=== PATIENT | female | born 1935 | race Caucasian/White ===

== ENCOUNTER 2017-11-03 18:00 | Inpatient (IN) | payer MEDICARE, OTHER ==
--- NOTE | 2017-11-03 18:42 | ED Physician Documentation ---
General Adult - HISTORIAN Historian: patient - HPI Stated Complaint: altered mental status Chief Complaint: General Adult Onset: hours Timing: still present Severity: moderate Further Comments: yes (Pt is an 82 yo female sent from [facility] for change in mental status. Pt has been on the decline for several weeks and has not been eating per family. Pt had modestly elevated liver enzymes on 10/29/17, but appears jaundiced on presentation. Pt is obtunded, responsive to painful stimuli.) - ROS CONST: other (Pt cannot give ROS) - PAST HX Past History: other (Depression, HTN, Osteoarthritis, B-12 deficiency, Anemia, Spinal stenosis, dementia) - SOCIAL HX Smoking History: non-smoker - FAMILY HX Family History: No - VITAL SIGNS Vital Signs: Vital Signs Temp Pulse Resp BP Pulse Ox 136/69 04/13/13 14:00 - REVIEWED ASSESSMENTS Nursing Assessment Reviewed: Yes Vitals Reviewed: Yes <Konstantin Dumas - Last Filed: 11/03/17 19:08> - VITAL SIGNS Vital Signs: Vital Signs Temp Pulse Resp BP Pulse Ox 96.9 F L 75 30 H 92/50 11/03/17 18:03 11/03/17 21:00 11/03/17 18:03 11/03/17 18:03 <Onofre Edwards - Last Filed: 11/03/17 21:25> - PAST HX Allergies/Adverse Reactions: Allergies Allergy/AdvReac Type Severity Reaction Status Date / Time No Known Allergies Allergy Verified 03/25/13 08:06 Home Medications: Ambulatory Orders Medication Instructions Recorded Acetaminophen 650 mg RC Q4 PRN 10/31/17 Acetaminophen [Tylenol Extra 1,000 mg PO BID u2 10/31/17 Strength] Atenolol [Tenormin] 50 mg PO dly hold if HR <60 u2 10/31/17 Ferrous Sulfate 325 mg PO DAILY u2 10/31/17 Folic Acid 1 mg PO DAILY u2 10/31/17 Furosemide [Lasix] 40 mg PO DAILY u2 10/31/17 Loperamide HCl/Simethicone 1 each PO PRN u2 10/31/17 [Imodium Multi-Symptom Rel Cplt] Potassium Chloride 10 meq PO DAILY u2 10/31/17 Ranitidine HCl 150 mg PO BID u2 10/31/17 Progress - Progress Progress: Care transferred to Dr. Edwards at 1900. <Konstantin Dumas - Last Filed: 11/03/17 19:08> ED Results Lab/Radiology - Orders Orders: ED Orders Category Date Time Status Continuous EKG monitoring Q30M Care 11/03/17 18:45 Active Continuous Pulse Oximetry Q30M Care 11/03/17 18:45 Active Cesar [Urinary catheterization] 1T Care 11/03/17 21:[address] IV Lock 1T Care 11/03/17 18:45 Active CHEST 1VIEW [RAD] Stat Exams 11/03/17 Completed CBC/PLATELET/DIFF Routine Lab 11/03/17 19:16 Received CKMB Stat Lab 11/03/17 19:16 Received CMP Routine Lab 11/03/17 19:16 Received CREATINE KINASE Routine Lab 11/03/17 19:16 Received TROPONIN I (cTnI) Stat Lab 11/03/17 19:16 Received UA [URINALYSIS] Routine Lab 11/03/17 Ordered 0.9 % Sodium Chloride [Normal Saline] 1,000 ml Med 11/03/17 18:43 Discontinued IV .STK-MED 0.9 % Sodium Chloride [Normal Saline] 1,000 ml Med 11/03/17 21:00 Ordered IV Q10H 0.9 % Sodium Chloride [Normal Saline] 1,000 ml Med 11/03/17 18:45 Discontinued IV Q2H Oxygen Daily Oxygen 11/03/17 18:45 Ordered EKG WITH COMPARISON Stat Ther 11/03/17 18:45 Ordered Transfer Routine Transfer 11/03/17 Ordered <Onofre Edwards - Last Filed: 11/03/17 21:25> General Adult Physical Exam - PHYSICAL EXAM GENERAL APPEARANCE: severe distress (obtunded) EENT: other (pupils constricted, minimally reactive) RESPIRATORY: other (limited excursion, ) CVS: irregularly irregular rhy ABDOMEN: soft, decreased BS SKIN: warm/dry, jaundice EXTREMITIES: edema (2+) NEURO: other (obtunded) <Konstantin Dumas - Last Filed: 11/03/17 19:08> Discharge <Konstantin Dumas - Last Filed: 11/03/17 19:08> Comments: disc cond w/ family and DR CHIANG will adm observation cont hydration eval for joe et sepsis Decision to Admit: NO Decision Time: 21:25 <Onofre Edwards - Last Filed: 11/03/17 21:25> Clincal Impression: dehydration, probable uti, severe ininationand debilitation Referrals: Gideon Chiang MD [Primary Care Provider] - 2 Days Condition: Fair Disposition: T-[facility]
[2017-11-03] MEDS ORDERED: 0.9 % SODIUM CHLORIDE 1,000 ML IV ONE ×2 (18:43→18:45)
--- NOTE | 2017-11-03 19:28 | Diagnostic Imaging Report ---
[facility] [id number] [facility].[address] [address] Report Submission Date: Nov 03, 2017 7:25:18 PM CDT Patient Study Name: RAHUL SERRANO Date: Nov 03, 2017 6:52:17 PM CDT Modality Type: DX Gender: F Description: CHEST : 31 Institution: [facility] Physician: BERT MCGRAW Chest, 1 view History: OBTUNDED,HYPOTENSIVE Findings: The heart size is mildly enlarged. Mild atherosclerosis is present of the aorta. The lungs are clear. Calcified granuloma seen in the right upper lobe. There is no pleural effusion or pneumothorax identified. The osseous structures are normal. Impression: 1. No acute pulmonary disease. 2. Mild cardiomegaly. Electronically signed on Nov 03, 2017 7:25:18 PM CDT by: Marvel MORGAN
[2017-11-03] MEDS: 0.9 % SODIUM CHLORIDE 1,000 ML IV SCH (20:54)
[2017-11-03] MEDS ORDERED: ACETAMINOPHEN 500 MG TABLET PO PRN (23:31)
[2017-11-03] MEDS ORDERED: ACETAMINOPHEN 650 MG SUPP.RECT RC PRN (23:31)
[2017-11-03] MEDS ORDERED: LORazepam 2 MG/ML VIAL IVP PRN (23:32)
--- NOTE | 2017-11-03 23:35 | History and Physical Report ---
History of Present Illnes - History of Present Illness Reason for Visit: decreas mental status History of Present Illness: 82-year-old white female who resides at [facility]. Patient has a history of dementia. Over the last several weeks patient's health has been declining. Patient had decreased oral intake. Patient has had changes mental status. Today patient became more lethargic was not taking any any oral intake. It was felt that the patient may be developing some dehydration was subsequently transferred to the ED for further evaluation. In the emergency room patient was noted to be mild to moderate dehydration. Patient did have what appeared to be a urinary tract infection. There is some thought with that the patient may have some early urosepsis. Patient was subsequently admitted to the hospital for further care and evaluation. In the emergency room patient did appear to be appended to. Patient was responding to painful stimuli. Was not responding to family members. Family members stated that they did want to go ahead and try to treat the urinary tract infection to see if the mother would get better but does not want any heroic measures done. - Past Medical History Cardiac: HTN Psych: Depression Musculoskeletal: Osteoarthritis (generalized) Rheumatologic: denies: Fibromyalgia, Rheumatoid arthritis Infectious Disease: denies: Bacterial vaginosis Renal/: Chronic renal failure. denies: Chronic renal insuff Endocrine: denies: Diabetes, Hyperthyroidism - Past Surgical History Past Surgical History: None - Past Social History Smoke: No Occupation: housewife Alcohol: None Drugs: None Lives: With Family Domestic Violence: Negative - Health Maintenance Health Maintenance: Influenza Vaccine, Pneumococcal Vaccine Pneumonia Vaccine: Yes Resuscitation Status: DNR - Unable to Obtain History Unable to Obtain: Yes Review of Systems - Review of Systems Constitutional: Weakness, Malaise. negative: Fever, Chills, Sweats Eyes: negative: pain ENT: negative: Ear Pain, Ear Discharge, Nose Pain, Nose Discharge, Nose Congestion, Mouth Pain, Throat Pain Respiratory: Shortness of Breath, Hemoptysis. negative: Cough, Dry, SOB with Excertion, Pleuritic Pain Cardiovascular: negative: Chest Pain, Palpitations, Orthopnea, Paroxysmal Noc. Dyspnea, Edema Gastrointestinal: negative: Nausea, Vomiting, Abdominal Pain, Diarrhea, Constipation, Melena, Hematochezia Genitourinary: Frequency, Incontinence. negative: Dysuria, Hematuria Musculoskeletal: Back Pain Skin: negative: Rash Neurological: Weakness. negative: Numbness, Incoordination - Medications/Allergies Allergies/Adverse Reactions: Allergies Allergy/AdvReac Type Severity Reaction Status Date / Time No Known Allergies Allergy Verified 03/25/13 08:06 Current Inpatient Medications: Current Inpatient Medications Acetaminophen (Tylenol Extra Strength) 500 mg PO Q4H PRN PRN Reason: Fever >101 Acetaminophen (Tylenol) 650 mg RC Q4 PRN PRN Reason: Fever >101 Sodium Chloride (Normal Saline) 1,000 mls @ 100 mls/hr IV Q10H DARIEL Last Admin: 11/03/17 20:54 Dose: 100 mls/hr Levofloxacin (Levaquin) 500 mg PO DAILY DARIEL Lorazepam (Ativan) 0.5 mg IVP Q4 PRN PRN Reason: Anxiety Exam - Exam Vital Signs: Vital Signs (72 hours) 11/03/17 22:24 Pulse Rate [ 79 Apical] Respiratory 22 Rate Blood Pressure 62/30 [Right Arm] General: No acute distress. No: Alert, Oriented to Person, Oriented to Place, Oriented to Time HEENT: Atraumatic, PERRLA. No: Pharyngeal Erythema Neck: Normal Range of Motion. No: Stridor, Rigidity, Lymphadenopathy Carotids: WNL Thyroid: WNL Lungs: Clear to auscultation, Normal air movement, Speaks full Sentences. No: Wheezes, Rales, Rhonchi Cardiovascular: Regular rate, Normal S1, Normal S2, No murmurs Abdomen: Decreased Bowel Sounds. No: No hepatospenomegaly, Distended, Hepatomegaly Integumentary: Normal, [place], Warm, Dry Extremities: No clubbing, No cyanosis, Other (1 plus edema) Neurological: Normal speech, Strength Equal Bilat, Normal tone, Sensation intact , Cranial nerves 3-12 NL. No: Normal gait Psych/Mental Status: No: Mental status NL, Mood NL, Appropriate Affect, Intact Judgment Assessment/Plan - Assessment/Plan (1) Sepsis due to urinary tract infection Status: Acute Current Visit: Yes (2) Dementia Status: Acute Current Visit: Yes (3) Dehydration Status: Acute Current Visit: Yes VTE Assessment - RISK FACTOR SCORE VTE RISK FACTOR SCORES: AGE OVER 60 YEARS, ACUTE INFECTION OTHER THEN SEPSIS - RISK VTE MODERATE RISK: SCORE OF 2 (RISK PROXIMAL DVT 2-4%) PROPHYAXIS NEEDED
[2017-11-04] MEDS ORDERED: LEVOFLOXACIN 500MG/D5W 100ML 100 ML IV ONE (00:16)
[2017-11-04] MEDS: LEVOFLOXACIN 500MG/D5W 100ML 500 MG in PREMIX BAG 1 BAG IV SCH ×2 (00:23→10:46)
[2017-11-04 00:46] VITALS: BMI 37.0
[2017-11-04] MEDS ORDERED: SIMETHICONE PO PRN (01:25)
[2017-11-04] MEDS ORDERED: LOPERAMIDE HCL PO PRN (01:25)
[2017-11-04] MEDS ORDERED: ACETAMINOPHEN 650 MG SUPP.RECT RC PRN (01:25)
[2017-11-04] MEDS ORDERED: ATENOLOL 50 MG PO SCH ×2 (01:25→10:00)
[2017-11-04] MEDS ORDERED: [UNRECOGNIZED DRUG - OTHER] PO PRN (01:25)
[2017-11-04 06:15] VITALS: BP 156/112
[2017-11-04 07:52] LABS: APPEARANCE,URINE CLOUDY (CLEAR); COLOR,URINE AMBER (YELLOW); OCCULT BLOOD,URINE 3+ (NEGATIVE); UROBILINOGEN URINE 0.2 Eu (0.2-1.0)
[2017-11-04] MEDS: 0.9 % SODIUM CHLORIDE 1,000 ML IV SCH (08:58)
[2017-11-04] MEDS ORDERED: Non-Formulary 1 EACH (Ranitidine Hcl [Ranitidine Hcl] 150 MG) PO SCH (09:00)
[2017-11-04] MEDS ORDERED: FUROSEMIDE 40 MG TABLET PO SCH (09:00)
[2017-11-04] MEDS: MORPHINE SULFATE 10MG/0.5ML ORAL SOLUTION PO PRN ×2 (10:32→12:42)
--- NOTE | 2017-11-04 12:34 | Discharge Summary ---
Discharge Summary - Discharge Sumary History of Present Illness: 82-year-old white female who resides at [facility]. Patient has a history of dementia. Over the last several weeks patient's health has been declining. Patient had decreased oral intake. Patient has had changes mental status. Today patient became more lethargic was not taking any any oral intake. It was felt that the patient may be developing some dehydration was subsequently transferred to the ED for further evaluation. In the emergency room patient was noted to be mild to moderate dehydration. Patient did have what appeared to be a urinary tract infection. There is some thought with that the patient may have some early urosepsis. Patient was subsequently admitted to the hospital for further care and evaluation. In the emergency room patient did appear to be appended to. Patient was responding to painful stimuli. Was not responding to family members. Family members stated that they did want to go ahead and try to treat the urinary tract infection to see if the mother would get better but does not want any heroic measures done. Condition at Discharge: Guarded Home Medications: Ambulatory Orders Medication Instructions Recorded Acetaminophen 650 mg RC Q4 PRN 10/31/17 LORazepam [Ativan] 0.5 mg PO Q4 PRN #20 tablet 11/04/17 Consultations this Visit: None Procedures this Visit: None Allergies/Adverse Reactions: Allergies Allergy/AdvReac Type Severity Reaction Status Date / Time No Known Allergies Allergy Verified 03/25/13 08:06 Discharge Summary: Patient was admitted to the hospital with the thought that she would be started on IV antibiotics. However once the family consulted each other they decided that they did not want any IV fluids or antibiotics given. Family was advised that we could get comfort measures for the patient at the custodial. They agreed and the patient was subsequently transferred back to the custodial for comfort care. Family is aware that the patient is not taking anything orally of this time. - Final Diagnosis (1) Sepsis due to urinary tract infection Problems: will treat the best we can with po medications (2) Dementia Problems: stable
[2017-11-04] MEDS ORDERED: LEVOFLOXACIN 500 MG TABLET PO SCH (23:28)
== END 2017-11-04 13:18 | DRG 872 ==
LOC: ED 18:00 → UNDOADMOB 22:04 → SOUTH 22:04 → OBSVTOIN 11-04 01:23
PROVIDERS: ADMIT Family Medicine; ATTEND Family Medicine
DX: A41.9 Sepsis, unspecified organism (principal); N39.0 Urinary tract infection, site not specified; E86.0 Dehydration; F03.90 Unspecified dementia, unspecified severity, without behavioral disturbance, psychotic disturbance, mood disturbance, and anxiety
CPT/HCPCS: 51702; 71045; 80053; 81002; 82550; 82553; 84484; 85025; 87086; 87186; 99222; 99238; J1956; J7030